=== PATIENT | female | born 1990 | race Two or more races ===

== ENCOUNTER 2019-06-28 20:28 | Emergency (ER) | payer MEDICAID ==
[~2019-06-28] VITALS: Ht 157.5 cm; Wt 56.7 kg
--- NOTE | 2019-06-28 23:15 | NUR ---
MALENA ASHLEY PAC IS AT THE BEDSIDE SPEAKING TO THE PT.
--- NOTE | 2019-06-28 23:25 | NUR ---
PT LEFT FOR CT.
--- NOTE | 2019-06-29 | NUR ---
PT COUGHED UP A SMALL FISH BONE AND SHOWED Z NAZARIO ASHLEY.
--- NOTE | 2019-06-29 00:10 | NUR ---
Patient discharged to home in stable condition. Written and verbal after care instructions given. Patient verbalizes understanding of instruction. PT AMBULATED OUT WITH A STEADY GAIT. VSS. NAD NOTED. RESP EVEN AND UNLABORED.
[2019-06-29 00:31] VITALS: BP 117/72
== END 2019-06-29 00:10 | disposition home or self-care (01) ==
LOC: ER 20:30
DX: T17.228A Food in pharynx causing other injury, initial encounter (principal); X58.XXXA Exposure to other specified factors, initial encounter; Y93.89 Activity, other specified; Y92.89 Other specified places as the place of occurrence of the external cause; Y99.8 Other external cause status
CPT/HCPCS: 70360-TC; 70490-TC; 71045-TC